=== PATIENT | female | born 1960 | race African-American/Black ===

== ENCOUNTER 2019-02-03 05:30 | Inpatient (IN) | payer OTHER ==
[2019-02-03] MEDS ORDERED: ONDANSETRON 4 MG INJ IV (06:00)
[2019-02-03] MEDS ORDERED: NACL 0.9% 3 ML SYG IV (06:00)
[2019-02-03] MEDS ORDERED: ACETAMINOPHEN 325 MG TAB PO (06:00)
[2019-02-03] MEDS ORDERED: DOCUSATE SODIUM 100 MG CAP PO (06:00)
[2019-02-03] MEDS ORDERED: BISACODYL (EC) 5 MG TAB PO (06:00)
[2019-02-03] MEDS: morphine 2 MG INJ IV ×3 (06:20→12:23)
[2019-02-03 07:31] LABS: ADD MAN DIFF? NO
[2019-02-03 07:42] LABS: WHITE BLOOD COUNT 7.1 10^3/ul (4.8-10.8)
[2019-02-03 07:42] LABS: BASOPHILS % 0.6 % (0.0-2.0); EOSINOPHILS # 0.3 10^3/ul (0.0-0.5); EOSINOPHILS % 4.5 % (0.0-7.0); HEMATOCRIT 38.3 % (37.0-47.0); HEMOGLOBIN 12.6 g/dl (12.0-16.0); LYMPHOCYTES # 2.5 10^3/ul (0.8-2.9); LYMPHOCYTES % 35.6 % (15.0-51.0); MEAN CORPUSCULAR HEMOGLOBIN 28.6 pg (29.0-33.0); MEAN CORPUSCULAR HGB CONC 32.9 g/dl (32.0-37.0); MEAN PLATELET VOLUME 11.3 fl (7.4-10.4); MONOCYTE # 0.4 10^3/ul (0.3-0.9); MONOCYTES % 5.7 % (0.0-11.0); NEUTROPHIL # 3.8 10^3/ul (1.6-7.5); NEUTROPHILS % 53.3 % (39.0-77.0); PLATELET COUNT 126 10^3/UL (140-415); RED CELL DISTRIBUTION WIDTH 12.4 % (11.5-14.5)
[2019-02-03 07:57] LABS: HEMOGLOBIN A1C 4.9 % (0-5.9)
[2019-02-03 08:07] LABS: CREATINE KINASE 85 IU/L (23-200)
[2019-02-03 08:10] LABS: ALANINE AMINOTRANSFERASE 22 IU/L (13-69); ALBUMIN 4.1 g/dl (3.3-4.9); ALBUMIN/GLOBULIN RATIO 1.46; ALKALINE PHOSPHATASE 57 IU/L (42-121); ANION GAP 8 (5-13); ASPARTATE AMINO TRANSFERASE 20 IU/L (15-46); BILIRUBIN,INDIRECT 0.8 mg/dl (0-1.1); BILIRUBIN,TOTAL 0.8 mg/dl (0.2-1.3); BLOOD UREA NITROGEN 13 mg/dl (7-20); CALCIUM 9.3 mg/dl (8.4-10.2); CARBON DIOXIDE 32 mmol/L (21-31); CHLORIDE 104 mmol/L (97-110); CHOL/HDL RATIO 2.9 RATIO; CHOLESTEROL 132 mg/dl (100-200); CREATININE 0.91 mg/dl (0.44-1.00); Estimated GFR > 60 mL/min (>60); GLUCOSE 98 mg/dl (70-220); HDL CHOLESTEROL 45 mg/dl (35-98); LDL CHOLESTEROL,CALCULATED 64 mg/dl; MAGNESIUM 1.7 mg/dl (1.7-2.5); POTASSIUM 3.7 mmol/L (3.5-5.1); SODIUM 144 mmol/L (135-144); TOTAL PROTEIN 6.9 g/dl (6.1-8.1); TRIGLYCERIDES 114 mg/dl (0-149)
[2019-02-03 08:20] LABS: CK INDEX 0.7; CK-MB 0.57 ng/ml (0.0-2.4); TROPONIN-I < 0.012 ng/ml (0.000-0.120)
[2019-02-03] MEDS: ASPIRIN (EC) 81 MG TAB PO (10:00)
[2019-02-03 15:13] LABS: AMPHETAMINE/METHAMPHETAMINE Negative (NEGATIVE); BARBITURATES Negative (NEGATIVE); BENZODIAZEPINES Negative (NEGATIVE); CANNABINOIDS Positive (NEGATIVE); COCAINE Negative (NEGATIVE)
[2019-02-03 15:17] LABS: OPIATES Positive (NEGATIVE)
[2019-02-03 20:39] LABS: RAPID PLASMA REAGIN NONREACTIVE (NR)
[2019-02-03] MEDS ORDERED: ATORVASTATIN 40 MG TAB PO (21:00)
== END 2019-02-03 12:50 | disposition left against medical advice (07) | DRG 313 ==
LOC: TEL 05:30 → ICU 07:06
PROVIDERS: Family Medicine
DX: R07.9 Chest pain, unspecified (principal); G45.9 Transient cerebral ischemic attack, unspecified; R29.810 Facial weakness; R53.1 Weakness; Z86.73 Personal history of transient ischemic attack (TIA), and cerebral infarction without residual deficits; I10 Essential (primary) hypertension; E03.9 Hypothyroidism, unspecified; F20.9 Schizophrenia, unspecified; E78.5 Hyperlipidemia, unspecified; J45.909 Unspecified asthma, uncomplicated; R47.81 Slurred speech; M79.602 Pain in left arm; Z95.810 Presence of automatic (implantable) cardiac defibrillator
CPT/HCPCS: 71045; 80053; 80061; 80307; 82550; 82553; 83036; 83735; 84443; 84484; 85025; 86592; 93005; 97162